=== PATIENT | female | born 1980 | race American Indian/Alaskan Native ===

== ENCOUNTER 2020-03-26 01:38 | Inpatient (IN) | payer MEDICARE ==
[2020-03-26] MEDS ORDERED: MORPHINE 4 MG/1 ML INJ IV ONE (02:12)
[2020-03-26] MEDS ORDERED: ONDANSETRON 4 MG/2 ML INJ IV ONE (02:13)
--- NOTE | 2020-03-26 02:25 | Emergency Department Report ---
ED Fall HPI - General Chief Complaint: Extremity Injury, Lower Stated Complaint: RIGHT BROKEN ANKLE Time Seen by Provider: 03/26/20 02:15 Source: patient, EMS Mode of arrival: Stretcher - History of Present Illness Initial Comments: Patient is 39 years old female with history of congestive heart failure. Patient brought to the emergency room via EMS from home for evaluation of right ankle pain with deformity after patient fell from stair. Patient stated that she missed a step. Patient denied any other injuries. Patient received 200 mcg of fentanyl by EMS for pain control. Patient stated that she is still hurting. Patient with obvious deformity to the right ankle. Patient received morphine in the ER for pain control. Neurovascular intact. Complaint: fall -: Sudden, This morning Fall From: down stairs (#) Place Fall Occurred: home Loss of Consciousness: none Prolonged Down Time?: no Symptoms Prior to Fall: none Location - Extremities: Right: Ankle, Foot Severity: severe Severity scale (0 -10): 10 Quality: sharp Context: tripped/slipped Associated Symptoms: denies - Related Data Home Medications Medication Instructions Recorded Confirmed Last Taken Spironolactone [Aldactone] 25 mg PO QDAY 03/26/20 03/26/20 Unknown carvediloL [Coreg] 25 mg PO BID 03/26/20 03/26/20 Unknown Previous Rx's Medication Instructions Recorded Last Taken Type Ondansetron [Zofran Odt] 4 mg PO Q8HR PRN #14 tab.rapdis 03/26/20 Unknown Rx oxyCODONE /ACETAMINOPHEN [Percocet 1 tab PO Q6HR PRN #14 tablet 03/26/20 Unknown Rx 5/325] Allergies Allergy/AdvReac Type Severity Reaction Status Date / Time Penicillins Allergy Unknown Verified 03/27/15 16:07 ED Review of Systems ROS: Stated complaint: RIGHT BROKEN ANKLE Other details as noted in HPI Comment: All other systems reviewed and negative Constitutional: denies: chills, fever Respiratory: denies: cough, shortness of breath, SOB with exertion Cardiovascular: denies: chest pain Gastrointestinal: denies: abdominal pain, nausea, vomiting, diarrhea, constipation, hematemesis Musculoskeletal: denies: back pain Neurological: denies: headache, weakness ED Past Medical Hx - Past Medical History Previous Medical History?: Yes Hx Congestive Heart Failure: Yes Hx Asthma: Yes Hx COPD: Yes - Social History Smoking Status: Never Smoker - Medications Home Medications: Home Medications Medication Instructions Recorded Confirmed Last Taken Type Ondansetron [Zofran Odt] 4 mg PO Q8HR PRN #14 tab.rapdis 03/26/20 Unknown Rx Spironolactone [Aldactone] 25 mg PO QDAY 03/26/20 03/26/20 Unknown History carvediloL [Coreg] 25 mg PO BID 03/26/20 03/26/20 Unknown History oxyCODONE /ACETAMINOPHEN [Percocet 1 tab PO Q6HR PRN #14 tablet 03/26/20 Unknown Rx 5/325] ED Physical Exam - General Limitations: No Limitations General appearance: alert, in no apparent distress - Head Head exam: Present: atraumatic, normocephalic, normal inspection - Eye Eye exam: Present: normal appearance - ENT ENT exam: Present: normal exam, normal orophraynx, mucous membranes moist - Neck Neck exam: Present: normal inspection, full ROM. Absent: tenderness, meningismus, lymphadenopathy - Respiratory Respiratory exam: Present: normal lung sounds bilaterally - Cardiovascular Cardiovascular Exam: Present: regular rate, normal rhythm, normal heart sounds - GI/Abdominal GI/Abdominal exam: Present: soft. Absent: distended, tenderness, guarding, rebound, rigid - Expanded Lower Extremity Exam Right Hip exam: Present: normal inspection, full ROM. Absent: tenderness Upper Leg exam: Present: normal inspection, full ROM. Absent: tenderness Knee exam: Present: normal inspection, full ROM. Absent: tenderness Lower Leg exam: Present: normal inspection Ankle exam: Present: tenderness, swelling, abrasion, deformity, dislocation Foot/Toe exam: Present: normal inspection, full ROM. Absent: tenderness, swelling, abrasion Neuro vascular tendon exam: Present: no vascular compromise - Back Exam Back exam: Present: normal inspection, full ROM. Absent: CVA tenderness (R), CVA tenderness (L) - Neurological Exam Neurological exam: Present: alert, oriented X3, CN II-XII intact - Psychiatric Psychiatric exam: Present: normal mood - Skin Skin exam: Present: warm, intact, normal color ED Course Vital Signs 03/26/20 03/26/20 03/26/20 02:06 02:18 02:34 Temperature 98.8 F Temperature [ Intra-Procedure ] Temperature [ Post-Procedure] Temperature [ Pre-Procedure] Pulse Rate 87 Pulse Rate [ Intra-Procedure ] Pulse Rate [ Post-Procedure] Pulse Rate [Pre -Procedure] Respiratory 20 20 20 Rate Respiratory Rate [Intra- Procedure] Respiratory Rate [Post- Procedure] Respiratory Rate [Pre- Procedure] Blood Pressure 160/88 Blood Pressure [Intra- Procedure] Blood Pressure [Post-Procedure ] Blood Pressure [Pre-Procedure] Blood Pressure [Right] O2 Sat by Pulse 98 99 Oximetry O2 Sat by Pulse Oximetry [ Intra-Procedure ] O2 Sat by Pulse Oximetry [Post -Procedure] O2 Sat by Pulse Oximetry [Pre- Procedure] 03/26/20 03/26/20 03/26/20 02:48 03:20 03:22 Temperature Temperature [ 98.9 F Intra-Procedure ] Temperature [ Post-Procedure] Temperature [ 98.9 F 98.9 F Pre-Procedure] Pulse Rate Pulse Rate [ 97 H Intra-Procedure ] Pulse Rate [ Post-Procedure] Pulse Rate [Pre 90 90 -Procedure] Respiratory 20 Rate Respiratory 18 Rate [Intra- Procedure] Respiratory Rate [Post- Procedure] Respiratory 20 20 Rate [Pre- Procedure] Blood Pressure Blood Pressure 139/85 [Intra- Procedure] Blood Pressure [Post-Procedure ] Blood Pressure 150/76 150/76 [Pre-Procedure] Blood Pressure [Right] O2 Sat by Pulse Oximetry O2 Sat by Pulse 99 Oximetry [ Intra-Procedure ] O2 Sat by Pulse Oximetry [Post -Procedure] O2 Sat by Pulse 99 99 Oximetry [Pre- Procedure] 03/26/20 03/26/20 03/26/20 03:24 03:29 03:30 Temperature Temperature [ 98.9 F Intra-Procedure ] Temperature [ 98.9 F Post-Procedure] Temperature [ 98.9 F Pre-Procedure] Pulse Rate 90 Pulse Rate [ 97 H Intra-Procedure ] Pulse Rate [ 92 H Post-Procedure] Pulse Rate [Pre 90 -Procedure] Respiratory 16 Rate Respiratory 18 Rate [Intra- Procedure] Respiratory 20 Rate [Post- Procedure] Respiratory 20 Rate [Pre- Procedure] Blood Pressure Blood Pressure 139/85 [Intra- Procedure] Blood Pressure 143/76 [Post-Procedure ] Blood Pressure 150/76 [Pre-Procedure] Blood Pressure [Right] O2 Sat by Pulse 98 Oximetry O2 Sat by Pulse 99 Oximetry [ Intra-Procedure ] O2 Sat by Pulse 100 Oximetry [Post -Procedure] O2 Sat by Pulse 99 Oximetry [Pre- Procedure] 03/26/20 03/26/20 03/26/20 03:45 05:00 05:21 Temperature 98.8 F Temperature [ Intra-Procedure ] Temperature [ Post-Procedure] Temperature [ Pre-Procedure] Pulse Rate 92 H Pulse Rate [ Intra-Procedure ] Pulse Rate [ Post-Procedure] Pulse Rate [Pre -Procedure] Respiratory 20 20 20 Rate Respiratory Rate [Intra- Procedure] Respiratory Rate [Post- Procedure] Respiratory Rate [Pre- Procedure] Blood Pressure Blood Pressure [Intra- Procedure] Blood Pressure [Post-Procedure ] Blood Pressure [Pre-Procedure] Blood Pressure 129/72 [Right] O2 Sat by Pulse 100 Oximetry O2 Sat by Pulse Oximetry [ Intra-Procedure ] O2 Sat by Pulse Oximetry [Post -Procedure] O2 Sat by Pulse Oximetry [Pre- Procedure] - Moderate Sedation Indications: fracture/dislocation redu ASA Class: II Mallampati Airway Score: 2 Preparation: quality assurance monitor applied, pulse oximeter, capnometry used, supplemental O2 applied, reversal agents at bedside, suction/airway equipment at bedside, IV secured Fentanyl: IV Fentanyl Dose: 50 Midazolam: IV Midazolam Dose: 5 IV Etomidate Dose (mgs): 5 Complications: none Patient Tolerated Procedure: well, no complications - Orthopedic Fracture Reduction Fracture #1 Consent Obtained: written consent Time Out Performed: Yes Side: right Fracture Reduction Location: tibia, fibula Technique: direct manipulation Post Reduction X-rays Demonstrate: anatomical reduction Post-Reduction Neuro Exam: intact Post-Reduction Vascular Exam: intact Splint Applied: Yes Patient Tolerated Procedure: well, no complications ED Medical Decision Making - Lab Data Result diagrams: 03/27/20 04:40 03/27/20 04:40 - Radiology Data Radiology results: report reviewed - Medical Decision Making Patient is 39 years old female with history of congestive heart failure. Patient brought to the emergency room via EMS from home for evaluation of right ankle pain with deformity after patient fell from stair. Patient stated that she missed a step. Patient denied any other injuries. Patient received 200 mcg of fentanyl by EMS for pain control. Patient stated that. Still hurting. Patient with obvious deformity to the right ankle. Patient received morphine in the ER for pain control. Neurovascular intact. Under moderate sedation. Right ankle joint reduced. Posterior splint applied. post reduction film showed some dislocation. I discussed the patient with Dr. Soni and I sent images to him post preand post reduction film. He advised that patient can be discharged home and to follow-up with him in his office for further management. Patient given crutches. Unfortunately patient continued to have significant pain after multiple doses of pain medication. I re-discussed patient with Dr. Soni who advised to admit the patient to the hospitalist and he will be consulted on her. I discussed the patient with Dr. Nathan, he agreed to admit the patient to medical service. Critical care attestation.: If time is entered above; I have spent that time in minutes in the direct care of this critically ill patient, excluding procedure time. ED Disposition Clinical Impression: Ankle dislocation, Closed right fibular fracture Disposition: OP ADMIT IP TO THIS HOSP Is pt being admited?: Yes Condition: Stable
[2020-03-26] MEDS ORDERED: fentaNYL 100 MCG/2 ML INJ IV ONE (03:02)
[2020-03-26] MEDS ORDERED: MIDAZOLAM 5 MG/5 ML INJ MDV IV ONE (03:02)
--- NOTE | 2020-03-26 03:09 | XRay Report ---
RIGHT ANKLE 2 VIEWS INDICATION / CLINICAL INFORMATION: Fell down stairs. COMPARISON: None available. FINDINGS: There is a fracture dislocation of the right ankle with the talus dislocated one shaft laterally with respect to the tibial plafond. There are fractures involving the medial, posterior malleolus and sup er syndesmotic fracture of distal fibula. Postreduction x-ray recommended. Signer Name: Arian Puentes MD Signed: 03/26/2020 3:05 AM Workstation Name: [email or web address]
--- NOTE | 2020-03-26 03:10 | XRay Report ---
RIGHT FOOT 2 VIEWS INDICATION / CLINICAL INFORMATION: Fell down stairs. COMPARISON: None available. FINDINGS: No fracture or dislocation is seen within the right foot. Please see separate right ankle report for description of the ankle fracture dislocation Signer Name: Arian Puentes MD Signed: 03/26/2020 3:06 AM Workstation Name: [id number]
[2020-03-26] MEDS ORDERED: SODIUM CHLORIDE 0.9% 1000 ML 1,000 ML ONE (03:18)
[2020-03-26] MEDS ORDERED: ETOMIDATE 20 MG/10 ML INJ IV ONE ×2 (03:21→03:25)
--- NOTE | 2020-03-26 03:57 | XRay Report ---
RIGHT ANKLE 1 VIEW INDICATION / CLINICAL INFORMATION: Post Reduction. COMPARISON: Right ankle x-ray 2:42 AM same day FINDINGS: Right ankle fracture is again noted. Alignment cannot be assessed without 2 views. Signer Name: Arian Puentes MD Signed: 03/26/2020 3:52 AM Workstation Name: [id number]
--- NOTE | 2020-03-26 04:28 | XRay Report ---
RIGHT ANKLE 2 VIEWS INDICATION / CLINICAL INFORMATION: Post Reduction. COMPARISON: Right ankle x-ray 3:16 AM same day FINDINGS: Moderately displaced trimalleolar fracture is noted. The talus is subluxed 1.9 cm laterally with medi al malar fracture fragment trapped in the medial ankle mortise. Signer Name: Arian Puentes MD Signed: 03/26/2020 4:24 AM Workstation Name: [id number]
[2020-03-26] MEDS ORDERED: SODIUM CHLORIDE 0.9% 1000 ML 1,000 ML IV ONE (04:33)
[2020-03-26] MEDS ORDERED: KETOROLAC 30 MG/1 ML INJ ONE (05:19)
[2020-03-26] MEDS ORDERED: KETOROLAC 30 MG/1 ML INJ IV ONE (05:20)
[2020-03-26 06:22] LABS: Basophils % (Auto) 0.4 % (0.0-1.8); Eosinophils % (Auto) 0.4 % (0.0-4.3); Hematocrit 25.7 % (30.3-42.9); Hemoglobin 8.4 gm/dl (10.1-14.3); Lymphocytes # (Auto) 1.7 K/mm3 (1.2-5.4); Lymphocytes % (Auto) 15.5 % (13.4-35.0); Mean Corpuscular HGB Conc 33 % (30-34); Mean Corpuscular Volume 75 fl (79-97); Monocytes # (Auto) 0.5 K/mm3 (0.0-0.8); Platelet Count 262 K/mm3 (140-440); Red Blood Count 3.42 M/mm3 (3.65-5.03)
[2020-03-26 06:33] LABS: INR 0.95 (0.87-1.13)
[2020-03-26 06:34] LABS: Partial Thromboplastin Time 24.6 Sec. (24.2-36.6)
[2020-03-26 06:36] LABS: BUN/Creatinine Ratio 14; Blood Urea Nitrogen 11 mg/dL (7-17); Calcium 8.4 mg/dL (8.4-10.2); Hemolysis Index 0
--- NOTE | 2020-03-26 06:41 | XRay Report ---
CHEST 1 VIEW 03/26/2020 5:27 AM INDICATION / CLINICAL INFORMATION: Medical clearance for surgery. COMPARISON: None available. FINDINGS: SUPPORT DEVICES: None. HEART / MEDIASTINUM: No significant abnormality. LUNGS / PLEURA: No significant pulmonary or pleural abnormality. No pneumothorax. ADDITIONAL FINDINGS: No significant additional findings. IMPRESSION: 1. No acute findings. Signer Name: Arian Puentes MD Signed: 03/26/2020 6:36 AM Workstation Name: [id number]
[2020-03-26] MEDS ORDERED: ONDANSETRON 4 MG/2 ML INJ ONE (09:18)
[2020-03-26] MEDS ORDERED: HYDROmorphone 1 MG/1 ML INJ ONE (09:19)
[2020-03-26] MEDS: HYDROmorphone 1 MG/1 ML INJ IV PRN ×3 (09:20→21:50)
[2020-03-26] MEDS: ONDANSETRON 4 MG/2 ML INJ IV PRN (09:20)
[2020-03-26] MEDS ORDERED: LACTATED RINGERS 1,000 ML ONE (11:16)
[2020-03-26] MEDS ORDERED: HYDROmorphone 1 MG/1 ML INJ IV PRN ×2 (11:17→17:26)
[2020-03-26] MEDS ORDERED: ONDANSETRON 4 MG/2 ML INJ IV PRN ×2 (11:17→17:26)
[2020-03-26] MEDS ORDERED: fentaNYL 100 MCG/2 ML INJ IV NR (11:17)
[2020-03-26] MEDS ORDERED: LIDOCAINE MPF (2%) 20 MG/1 ML VIAL 5 ML ONE (11:20)
[2020-03-26] MEDS ORDERED: SUCCINYLCHOLINE CHLORIDE 200 MG/10 ML INJ MDV ONE (11:20)
[2020-03-26] MEDS ORDERED: NEOSTIGMINE 10MG/10 ML INJ MDV ONE (11:20)
[2020-03-26] MEDS ORDERED: ROCURONIUM 50 MG/5 ML INJ IV ONE (11:20)
[2020-03-26] MEDS ORDERED: PHENYLEPHRINE/NS 1,000 MCG/10 ML SYRINGE (OR USE) IV ONE (11:20)
[2020-03-26] MEDS ORDERED: GLYCOPYRROLATE 0.4 MG/2 ML INJ ONE (11:20)
[2020-03-26] MEDS ORDERED: propofoL 200 MG/20 ML VIAL IV ONE (11:20)
--- NOTE | 2020-03-26 11:21 | Anesthesia Day of Surgery ---
Anesthesia Day of Surgery - Day of Surgery Patient Examined: Yes Patient H&P Reviewed: Yes Patient is NPO: Yes
--- NOTE | 2020-03-26 11:21 | Anesthesia Consultation ---
Anesthesia Consult and Med Hx Date of service: 03/26/20 - Airway Anesthetic Teeth Evaluation: Dentures (upper) ROM Head & Neck: Adequate Mental/Hyoid Distance: Adequate Mallampati Class: Class III Intubation Access Assessment: Possibly Difficult - Pulmonary Exam CTA: Yes - Cardiac Exam Cardiac Exam: RRR - Pre-Operative Health Status ASA Pre-Surgery Classification: ASA3 Proposed Anesthetic Plan: General Nerve Block: Adductor canal + popliteal - Pulmonary Hx Asthma: Yes (no inhaler use in many months) Hx Respiratory Symptoms: No - Cardiovascular System Hx Hypertension: Yes Hx Heart Attack/AMI: No Hx Percutaneous Transluminal Coronary Angioplasty (PTCA): No Hx Cardia Arrhythmia: No Hx Pacemaker: No Hx Internal Defibrillator: No - Central Nervous System CVA: No - Gastrointestinal Hx Gastroesophageal Reflux Disease: No - Endocrine Hx Renal Disease: No Hx Liver Disease: No Hx Insulin Dependent Diabetes: No Hx Non-Insulin Dependent Diabetes: No Hx Thyroid Disease: No - Hematic Hx Anemia: Yes - Other Systems Hx Obesity: Yes (BMI) - Additional Comments Anesthesia Medical History Comments: No hx anesthetic complications. Hx CHF w/ stable 2 pillow orthopnea. Reports recent neg outpatient stress test. >4mets exercise capacity.
[2020-03-26] MEDS ORDERED: BUPIVACAINE-EPINEPHRINE/PF 0.25%-1:200,000 (30 ML) VIAL INFILTRATI ONE (11:23)
[2020-03-26] MEDS ORDERED: dexAMETHasone 4 MG/ML VIAL ONE (11:23)
[2020-03-26] MEDS ORDERED: LACTATED RINGERS 1,000 ML IV SCH (12:00)
[2020-03-26] MEDS ORDERED: MIDAZOLAM 2 MG/2 ML INJ IV NR (12:00)
[2020-03-26] MEDS ORDERED: GABAPENTIN 300 MG CAP PO NR (12:00)
[2020-03-26] MEDS ORDERED: VANCOMYCIN 1,500 MG in SODIUM CHLORIDE 0.9% 500 ML 500 ML IV NR (12:30)
[2020-03-26] MEDS ORDERED: VANCOMYCIN/NS 1 GM/250 ML 1 GM/250 ML BAG IV NR (13:00)
[2020-03-26] MEDS ORDERED: SODIUM CHLORIDE 0.9% IRR 1,000 ML BOTTLE IR ONE (13:28)
[2020-03-26] MEDS ORDERED: MORPHINE 4 MG/1 ML INJ IV PRN (14:53)
--- NOTE | 2020-03-26 14:58 | Consultation ---
History of Present Illness - [facility] Consult date: 03/26/20 Consult reason: fracture History of present illness: 39-year-old female who comes in complaining of right ankle pain and deformity after falling down stairs earlier today patient complains of inability to bear weight afterwards she was brought to the emergency department where x-rays taken revealed a displaced trimalleolar ankle fracture patient underwent a closed reduction in the emergency room she was admitted to the hospital and will be taken to the OR for an open reduction internal fixation Medications and Allergies Allergies Allergy/AdvReac Type Severity Reaction Status Date / Time Penicillins Allergy Unknown Verified 03/27/15 16:07 Home Medications Medication Instructions Recorded Confirmed Last Taken Type Ondansetron [Zofran Odt] 4 mg PO Q8HR PRN #14 tab.rapdis 03/26/20 Unknown Rx Spironolactone [Aldactone] 25 mg PO QDAY 03/26/20 03/26/20 Unknown History carvediloL [Coreg] 25 mg PO BID 03/26/20 03/26/20 Unknown History oxyCODONE /ACETAMINOPHEN [Percocet 1 tab PO Q6HR PRN #14 tablet 03/26/20 Unknown Rx 5/325] Active Meds: Active Medications Fentanyl (Sublimaze) 100 mcg IV ONCE NR Stop: 03/26/20 23:00 Last Admin: 03/26/20 11:44 Dose: 100 mcg Documented by: Gabapentin (Gabapentin) 300 mg PO PREOP NR Stop: 03/26/20 23:00 Last Admin: 03/26/20 11:38 Dose: 300 mg Documented by: Hydromorphone HCl (Dilaudid) 1 mg IV Q3H PRN PRN Reason: Pain, Moderate (4-6) Last Admin: 03/26/20 09:20 Dose: 1 mg Documented by: Hydromorphone HCl (Dilaudid) 0.5 mg IV Q10MIN PRN PRN Reason: Pain , Severe (7-10) Stop: 03/26/20 23:00 Lactated Ringer's (Lactated Ringers) 1,000 mls @ 42 mls/hr IV DIRECT KARYN Last Admin: 03/26/20 11:35 Dose: 42 mls/hr Documented by: Vancomycin HCl 1,500 mg/ (Sodium Chloride) 530 mls @ 333.333 mls/hr IV PREOP NR Stop: 03/26/20 18:00 Midazolam HCl (Versed) 2 mg IV PREOP NR Stop: 03/26/20 23:59 Last Admin: 03/26/20 11:43 Dose: 2 mg Documented by: Ondansetron HCl (Zofran) 4 mg IV Q3H PRN PRN Reason: Nausea Last Admin: 03/26/20 09:20 Dose: 4 mg Documented by: Ondansetron HCl (Zofran) 4 mg IV ONCE PRN PRN Reason: Nausea And Vomiting Stop: 03/26/20 23:00 Physical Examination - Physical exam Narrative exam: On physical examination significant musculoskeletal findings relates to the right lower extremity here patient is noted to have obvious deformity of the right ankle there was a mild abrasion along the medial border no bone exposed distal neurovascular status is intact she has good capillary refill Eyes: PERRL ENT: Positive: clear oral mucosa Respiratory effort: normal Respiratory: bilateral: CTA Rhythm: regular Heart Sounds: Positive: S1 & S2 General gastrointestinal: Positive: soft, non-tender, non-distended, normal bowel sounds Integumentary: clear, warm, dry Neurologic: Positive: CNII-XII intact, moves all extremities, gait normal. Negative: focal deficits Assessment and Plan Displaced right ankle fracture Recommendations patient will require open reduction internal fixation
--- NOTE | 2020-03-26 15:00 | Procedure Note ---
Date of procedure: 03/26/20 Pre-op diagnosis: Displaced right trimalleolar ankle fracture Post-op diagnosis: same Procedure: Open reduction internal fixation right ankle Procedure Patient was brought to the OR placed on the OR table in supine position following induction and intubation by anesthesia the patient's right lower extremity was prepped and draped in the usual sterile manner. A timeout procedure was done to identify the patient and the correct operative site. The right leg was then exsanguinated followed by inflation of the pneumatic tourniquet to 300 mmHg. A lateral incision was made along the distal leg this is taken down sharply through skin subcu the fracture site was identified patient was noted to have moderate comminution at the fracture next using bone clamps and retractors the fracture fragment was then manipulated and reduced this was then held in place using a 8 hole one third semitubular plate next a straight medial incision was made over the distal tibia this was then taken down sharply through skin subcu the fracture all on the medial malleolus was then identified again using clamps the fracture fragments were manipulated and were held in position using a K wire following this to 4.0 50 mm length cancellus screws were inserted under fluoroscopic control AP and lateral views were obtained showing good reduction of the fracture as well as placement of the hardware next the wound was were closed in a standard routine fashion postop dressings were applied as well as a well-padded posterior mold patient tolerated procedure there were no complications she was sent to postanesthesia recovery in a stable condition Anesthesia: [place] Surgeon: ANSELMO HENDRIX Estimated blood loss: minimal Pathology: none Condition: stable Disposition: PACU
--- NOTE | 2020-03-26 15:36 | Post Anesthesia Evaluation ---
- Post Anesthesia Evaluation Patient Participated: Yes Airway Patent: Yes Stable Respiratory Function: Yes Nausea/Vomiting: No Temp > 96.8F: Yes Pain Manageable: Yes Adequeate Hydration: Yes Anesthesia Complications: No
--- NOTE | 2020-03-26 15:58 | XRay Report ---
INTRAOPERATIVE FLUOROSCOPY: RIGHT ANKLE INDICATION: Right ankle fracture. TECHNIQUE: Intraoperative spot images were obtained during the procedure. FINDINGS: There is anatomic alignment of the distal fibular and medial malleolus fractures following placement of a lateral plate and multiple screws along the fibula and partially threaded screws along the media l malleolus. There is similar alignment of the posterior malleolus fracture. Alignment of the ankle m ortise has significantly improved. Please see the operative report for further details. Fluoroscopy Time: 31 seconds. Fluoroscopy Images: 2. Signer Name: Theodore Woo MD Signed: 03/26/2020 3:53 PM Workstation Name: [id number]
[2020-03-26] MEDS ORDERED: ACETAMINOPHEN 325 MG TAB PO PRN (17:26)
--- NOTE | 2020-03-26 17:26 | History and Physical Report ---
History of Present Illness Date of examination: 03/26/20 Date of admission: 03/26/20 05:58 Chief complaint: Right ankle pain and deformity after falling this morning History of present illness: 39-year-old female with history of hypertension and CHF brought in by EMS after a fall involving twisting of the ankle and swelling and deformity of the right ankle. Patient fell down from stairs. Patient missed a step. Patient was given fentanyl 200 mcg and route. Patient has obvious deformity of the right ankle and unable to walk. Pain is about 10 on a scale of 1-10. Movement is a precipitating factor. Rest is a relieving factor. Past Medical History Previous Medical History?: Yes Congestive Heart Failure: Yes Asthma: Yes COPD: Yes Surgical history none Social History Smoking Status: Never Smoker Family history HTN Medications Home Medications: Home Medications Medication Instructions Recorded Confirmed Last Taken Type Ondansetron [Zofran Odt] 4 mg PO Q8HR PRN #14 tab.rapdis 03/26/20 Unknown Rx Spironolactone [Aldactone] 25 mg PO QDAY 03/26/20 03/26/20 Unknown History carvediloL [Coreg] 25 mg PO BID 03/26/20 03/26/20 Unknown History oxyCODONE /ACETAMINOPHEN [Percocet 1 tab PO Q6HR PRN #14 tablet 03/26/20 Unknown Rx 5/325] Review of Systems ROS: Stated complaint: RIGHT BROKEN ANKLE Other details as noted in HPI Comment: All other systems reviewed and negative Constitutional: denies: chills, fever Respiratory: denies: cough, shortness of breath, SOB with exertion Cardiovascular: denies: chest pain Gastrointestinal: denies: abdominal pain, nausea, vomiting, diarrhea, constipation, hematemesis Musculoskeletal: denies: back pain Neurological: denies: headache, weakness Medications and Allergies Allergies Allergy/AdvReac Type Severity Reaction Status Date / Time Penicillins Allergy Unknown Verified 03/27/15 16:07 Home Medications Medication Instructions Recorded Confirmed Last Taken Type Ondansetron [Zofran Odt] 4 mg PO Q8HR PRN #14 tab.rapdis 03/26/20 Unknown Rx Spironolactone [Aldactone] 25 mg PO QDAY 03/26/20 03/26/20 Unknown History carvediloL [Coreg] 25 mg PO BID 03/26/20 03/26/20 Unknown History oxyCODONE /ACETAMINOPHEN [Percocet 1 tab PO Q6HR PRN #14 tablet 03/26/20 Unknown Rx 5/325] Active Meds: Active Medications Acetaminophen/Hydrocodone Bitart (Ravia 5/325) 1 each PO Q6H PRN PRN Reason: Pain, Moderate (4-6) Fentanyl (Sublimaze) 100 mcg IV ONCE NR Stop: 03/26/20 23:00 Last Admin: 03/26/20 11:44 Dose: 100 mcg Documented by: Gabapentin (Gabapentin) 300 mg PO PREOP NR Stop: 03/26/20 23:00 Last Admin: 03/26/20 11:38 Dose: 300 mg Documented by: Hydromorphone HCl (Dilaudid) 1 mg IV Q3H PRN PRN Reason: Pain, Moderate (4-6) Last Admin: 03/26/20 09:20 Dose: 1 mg Documented by: Hydromorphone HCl (Dilaudid) 0.5 mg IV Q10MIN PRN PRN Reason: Pain , Severe (7-10) Stop: 03/26/20 23:00 Lactated Ringer's (Lactated Ringers) 1,000 mls @ 42 mls/hr IV DIRECT KARYN Last Admin: 03/26/20 11:35 Dose: 42 mls/hr Documented by: Vancomycin HCl 1,500 mg/ (Sodium Chloride) 530 mls @ 333.333 mls/hr IV PREOP NR Stop: 03/26/20 18:00 Midazolam HCl (Versed) 2 mg IV PREOP NR Stop: 03/26/20 23:59 Last Admin: 03/26/20 11:43 Dose: 2 mg Documented by: Morphine Sulfate (Morphine) 4 mg IV Q4H PRN PRN Reason: Pain , Severe (7-10) Ondansetron HCl (Zofran) 4 mg IV Q3H PRN PRN Reason: Nausea Last Admin: 03/26/20 09:20 Dose: 4 mg Documented by: Ondansetron HCl (Zofran) 4 mg IV ONCE PRN PRN Reason: Nausea And Vomiting Stop: 03/26/20 23:00 Sodium Chloride (Sodium Chloride Flush Syringe 10 Ml) 10 ml IV PRN NR Stop: 03/29/20 14:59 Exam - Constitutional Vitals: Temp Pulse Resp BP Pulse Ox 98.1 F 87 18 136/85 100 03/26/20 15:52 03/26/20 15:52 03/26/20 15:52 03/26/20 15:52 03/26/20 15:52 General appearance: Present: mild distress, well-nourished - EENT Eyes: Present: PERRL ENT: hearing intact, clear oral mucosa - Neck Neck: Present: supple, normal ROM - Respiratory Respiratory effort: normal Respiratory: bilateral: CTA - Cardiovascular Heart rate: 78 Rhythm: regular Heart Sounds: Present: S1 & S2. Absent: rub, click - Extremities Extremities: no ischemia, pulses intact, pulses symmetrical, No edema, abnormal (Right ankle deformed) Extremity abnormal: deformity (Right ankle) Peripheral Pulses: within normal limits - Abdominal General gastrointestinal: Present: soft, non-tender, non-distended, normal bowel sounds Female genitourinary: Present: normal - Rectal Rectal Exam: deferred - Integumentary Integumentary: Present: clear, warm, dry - Musculoskeletal Musculoskeletal: gait normal, strength equal bilaterally - Psychiatric Psychiatric: appropriate mood/affect, intact judgment & insight - Neurologic Neurologic: CNII-XII intact, moves all extremities - Allied Health Allied health notes reviewed: nursing Results - Labs CBC & Chem 7: 03/27/20 04:40 03/27/20 04:40 Labs: Laboratory Last Values WBC 10.9 K/mm3 (4.5-11.0) 03/26/20 06:03 RBC 3.42 M/mm3 (3.65-5.03) L 03/26/20 06:03 Hgb 8.4 gm/dl (10.1-14.3) L 03/26/20 06:03 Hct 25.7 % (30.3-42.9) L 03/26/20 06:03 MCV 75 fl (79-97) L 03/26/20 06:03 MCH 25 pg (28-32) L 03/26/20 06:03 MCHC 33 % (30-34) 03/26/20 06:03 RDW 18.0 % (13.2-15.2) H 03/26/20 06:03 Plt Count 262 K/mm3 (140-440) 03/26/20 06:03 Lymph % (Auto) 15.5 % (13.4-35.0) 03/26/20 06:03 Baker % (Auto) 5.0 % (0.0-7.3) 03/26/20 06:03 Eos % (Auto) 0.4 % (0.0-4.3) 03/26/20 06:03 Baso % (Auto) 0.4 % (0.0-1.8) 03/26/20 06:03 Lymph # 1.7 K/mm3 (1.2-5.4) 03/26/20 06:03 Baker # 0.5 K/mm3 (0.0-0.8) 03/26/20 06:03 Eos # 0.0 K/mm3 (0.0-0.4) 03/26/20 06:03 Baso # 0.0 K/mm3 (0.0-0.1) 03/26/20 06:03 Seg Neutrophils % 78.7 % (40.0-70.0) H 03/26/20 06:03 Seg Neutrophils # 8.6 K/mm3 (1.8-7.7) H 03/26/20 06:03 PT 12.5 Sec. (12.2-14.9) 03/26/20 06:03 INR 0.95 (0.87-1.13) 03/26/20 06:03 APTT 24.6 Sec. (24.2-36.6) 03/26/20 06:03 Sodium 138 mmol/L (137-145) 03/26/20 06:03 Potassium 4.2 mmol/L (3.6-5.0) 03/26/20 06:03 Chloride 103.4 mmol/L (98-107) 03/26/20 06:03 Carbon Dioxide 23 mmol/L (22-30) 03/26/20 06:03 Anion Gap 16 mmol/L 03/26/20 06:03 BUN 11 mg/dL (7-17) 03/26/20 06:03 Creatinine 0.8 mg/dL (0.7-1.2) 03/26/20 06:03 Estimated GFR > 60 ml/min 03/26/20 06:03 BUN/Creatinine Ratio 14 % 03/26/20 06:03 Glucose 125 mg/dL (65-100) H 03/26/20 06:03 Calcium 8.4 mg/dL (8.4-10.2) 03/26/20 06:03 Blood Type O POSITIVE 03/26/20 06:06 Antibody Screen Negative 03/26/20 06:06 - Imaging and Cardiology Imaging and Cardiology: Right ankle x-ray FINDINGS: Moderately displaced trimalleolar fracture is noted. The talus is subluxed 1.9 cm laterally with medial malar fracture fragment trapped in the medial ankle mortise. Winters/IV: Voiding Method Bedpan IV Catheter Type [Left INT / Saline Lock Antecubital] Assessment and Plan Advance Directives: Yes (Full code) VTE prophylaxis?: Chemical Plan of care discussed with patient/family: Yes - Patient Problems (1) Trimalleolar fracture of right ankle Current Visit: Yes Status: Acute Qualifiers: Encounter type: initial encounter Fracture type: closed Qualified Code(s): S82.851A - Displaced trimalleolar fracture of right lower leg, initial encounter for closed fracture Plan to address problem: Patient to be taken to the operating room for surgery and internal fixation Complex fracture Dr. Soni consulted (2) Hypertension Current Visit: Yes Status: Chronic Qualifiers: Hypertension type: essential hypertension Qualified Code(s): I10 - Essential (primary) hypertension Plan to address problem: Continue antihypertensives (3) CHF (congestive heart failure) Current Visit: Yes Status: Chronic Qualifiers: Heart failure type: combined systolic and diastolic Plan to address problem: Mild Patient medically cleared for surgery (4) Anemia Current Visit: Yes Status: Chronic Qualifiers: Anemia type: iron deficiency Plan to address problem: Anemia work-up (5) DVT prophylaxis Current Visit: Yes Status: Acute Plan to address problem: SCDs for now and GI prophylaxis
[2020-03-26] MEDS ORDERED: SODIUM CHLORIDE 0.9% 1000 ML 1,000 ML IV SCH (17:30)
[2020-03-26] MEDS: FAMOTIDINE 20 MG/2 ML INJ IV SCH (21:51)
[2020-03-27] MEDS: ONDANSETRON 4 MG/2 ML INJ IV PRN ×2 (05:05→05:13)
[2020-03-27] MEDS: HYDROmorphone 1 MG/1 ML INJ IV PRN ×6 (05:05→22:43)
[2020-03-27 05:20] LABS: Basophils % (Auto) 0.1 % (0.0-1.8); Hematocrit 26.5 % (30.3-42.9); Hemoglobin 8.1 gm/dl (10.1-14.3); Lymphocytes # (Auto) 0.8 K/mm3 (1.2-5.4); Lymphocytes % (Auto) 8.2 % (13.4-35.0); Mean Corpuscular HGB Conc 31 % (30-34); Mean Corpuscular Volume 76 fl (79-97); Monocytes # (Auto) 0.6 K/mm3 (0.0-0.8); Monocytes % (Auto) 6.5 % (0.0-7.3); Platelet Count 278 K/mm3 (140-440); Red Cell Distribution Width 17.8 % (13.2-15.2)
[2020-03-27 05:23] LABS: Alanine Aminotransferase 12 units/L (7-56); Albumin 3.4 g/dL (3.9-5); BUN/Creatinine Ratio 11; Blood Urea Nitrogen 9 mg/dL (7-17); Calcium 8.5 mg/dL (8.4-10.2); Hemolysis Index 3
[2020-03-27] MEDS: FAMOTIDINE 20 MG/2 ML INJ IV SCH ×2 (08:26→11:14)
[2020-03-27] MEDS: oxyCODONE /ACETAMINOPHEN 5-325MG TAB PO PRN (13:01)
--- NOTE | 2020-03-27 16:27 | Progress Note ---
Assessment and Plan Status post ORIF right ankle Doing well Continue physical therapy and observation Subjective Date of service: 03/27/20 Interval history: Complaining of right ankle pain otherwise okay Objective Vital signs: Vital Signs - 12hr 03/27/20 03/27/20 03/27/20 05:52 08:11 12:47 Temperature 98.1 F 98.0 F 98.2 F Pulse Rate 75 79 70 Respiratory 20 20 19 Rate Blood Pressure 129/70 136/74 [Left] Blood Pressure 135/70 [Right] O2 Sat by Pulse 96 95 Oximetry Incision: healing, clean and dry Weight bearing status: none - Labs CBC & BMP: 03/27/20 04:40 03/27/20 04:40 Labs: Abnormal lab results 03/27/20 03/27/20 Range/Units 04:40 04:40 RBC 3.50 L (3.65-5.03) M/mm3 Hgb 8.1 L (10.1-14.3) gm/dl Hct 26.5 L (30.3-42.9) % MCV 76 L (79-97) fl MCH 23 L (28-32) pg RDW 17.8 H (13.2-15.2) % Lymph % (Auto) 8.2 L (13.4-35.0) % Lymph # 0.8 L (1.2-5.4) K/mm3 Seg Neutrophils % 85.2 H (40.0-70.0) % Seg Neutrophils # 8.3 H (1.8-7.7) K/mm3 Glucose 124 H (65-100) mg/dL Albumin 3.4 L (3.9-5) g/dL
--- NOTE | 2020-03-27 17:11 | Progress Note ---
Assessment and Plan - Patient Problems (1) Trimalleolar fracture of right ankle Current Visit: Yes Status: Acute Qualifiers: Encounter type: initial encounter Fracture type: closed Qualified Code(s): S82.851A - Displaced trimalleolar fracture of right lower leg, initial encounter for closed fracture Plan to address problem: Patient had right ankle surgery with trimalleolar fracture fixation Postop patient doing well Patient using walker Needs pain management (2) Hypertension Current Visit: Yes Status: Chronic Qualifiers: Hypertension type: essential hypertension Qualified Code(s): I10 - Essential (primary) hypertension Plan to address problem: Continue antihypertensives (3) CHF (congestive heart failure) Current Visit: Yes Status: Chronic Qualifiers: Heart failure type: combined systolic and diastolic Plan to address problem: Mild Patient medically cleared for surgery (4) Anemia Current Visit: Yes Status: Chronic Qualifiers: Anemia type: iron deficiency Plan to address problem: Anemia work-up (5) DVT prophylaxis Current Visit: Yes Status: Acute Plan to address problem: SCDs for now and GI prophylaxis Subjective Date of service: 03/27/20 Principal diagnosis: Right ankle trimalleolar fracture Interval history: Patient is s/p surgery and doing well patient is using a walker Objective - Constitutional Vitals: Vital Signs - 12hr 03/27/20 03/27/20 03/27/20 05:52 08:11 12:47 Temperature 98.1 F 98.0 F 98.2 F Pulse Rate 75 79 70 Respiratory 20 20 19 Rate Blood Pressure 129/70 136/74 [Left] Blood Pressure 135/70 [Right] O2 Sat by Pulse 96 95 Oximetry General appearance: Present: no acute distress, well-nourished - EENT Eyes: PERRL, EOM intact ENT: hearing intact, clear oral mucosa Ears: bilateral: normal - Neck Neck: supple, normal ROM - Respiratory Respiratory effort: normal Respiratory: bilateral: CTA - Breasts Breasts: normal - Cardiovascular Heart rate: 80 Rhythm: regular Heart Sounds: Present: S1 & S2. Absent: gallop, rub Extremities: pulses intact, No edema, normal color, Full ROM - Gastrointestinal General gastrointestinal: Present: soft, non-tender, non-distended, normal bowel sounds - Genitourinary Female genitourinary: normal - Integumentary Integumentary: clear, warm, dry - Musculoskeletal Musculoskeletal: 1, strength equal bilaterally - Neurologic Neurologic: moves all extremities - Psychiatric Psychiatric: memory intact, appropriate mood/affect, intact judgment & insight - Allied health notes Allied health notes reviewed: nursing, case management - Labs CBC & Chem 7: 03/27/20 04:40 03/27/20 04:40 Labs: Abnormal lab results 03/27/20 03/27/20 Range/Units 04:40 04:40 RBC 3.50 L (3.65-5.03) M/mm3 Hgb 8.1 L (10.1-14.3) gm/dl Hct 26.5 L (30.3-42.9) % MCV 76 L (79-97) fl MCH 23 L (28-32) pg RDW 17.8 H (13.2-15.2) % Lymph % (Auto) 8.2 L (13.4-35.0) % Lymph # 0.8 L (1.2-5.4) K/mm3 Seg Neutrophils % 85.2 H (40.0-70.0) % Seg Neutrophils # 8.3 H (1.8-7.7) K/mm3 Glucose 124 H (65-100) mg/dL Albumin 3.4 L (3.9-5) g/dL
[2020-03-27] MEDS: HYDROcodone/ACETAMINOPHEN 5-325 MG TAB PO PRN (21:36)
[2020-03-27] MEDS: FAMOTIDINE 20 MG TAB PO SCH (21:36)
[2020-03-28] MEDS: HYDROmorphone 1 MG/1 ML INJ IV PRN ×3 (02:59→11:48)
[2020-03-28] MEDS: HYDROcodone/ACETAMINOPHEN 5-325 MG TAB PO PRN ×3 (04:32→15:40)
[2020-03-28] MEDS ORDERED: HYDROmorphone 1 MG/1 ML INJ IV ONE (05:20)
[2020-03-28] MEDS: FAMOTIDINE 20 MG TAB PO SCH ×2 (08:29→10:05)
--- NOTE | 2020-03-28 14:49 | Progress Note ---
Assessment and Plan - Patient Problems (1) Trimalleolar fracture of right ankle Current Visit: Yes Status: Acute Qualifiers: Encounter type: initial encounter Fracture type: closed Qualified Code(s): S82.851A - Displaced trimalleolar fracture of right lower leg, initial encounter for closed fracture (2) Hypertension Current Visit: Yes Status: Chronic Qualifiers: Hypertension type: essential hypertension Qualified Code(s): I10 - Essential (primary) hypertension (3) CHF (congestive heart failure) Current Visit: Yes Status: Chronic Qualifiers: Heart failure type: combined systolic and diastolic (4) Anemia Current Visit: Yes Status: Chronic Qualifiers: Anemia type: iron deficiency (5) DVT prophylaxis Current Visit: Yes Status: Acute Objective - Constitutional Vitals: Vital Signs - 12hr 03/28/20 03/28/20 03/28/20 04:43 05:00 07:25 Temperature 98.2 F 98.4 F Pulse Rate 90 83 Respiratory 17 17 Rate Blood Pressure 161/95 [Left] Blood Pressure 160/74 156/87 [Right] O2 Sat by Pulse 95 100 96 Oximetry 03/28/20 03/28/20 09:01 11:00 Temperature 98.2 F Pulse Rate 96 H Respiratory 18 Rate Blood Pressure 136/97 [Left] Blood Pressure [Right] O2 Sat by Pulse 96 100 Oximetry - Labs CBC & Chem 7: 03/27/20 04:40 03/27/20 04:40
[2020-03-28 15:22] VITALS: BP 130/84
[2020-03-28] MEDS ORDERED: KETOROLAC 30 MG/1 ML INJ IV SCH (18:00)
--- NOTE | 2020-03-28 18:57 | Discharge Summary ---
Providers - Providers Date of Admission: 03/26/20 05:58 Date of discharge: 03/28/20 Attending physician: JANESSA VIGIL 03/26/20 05:58 Consult to Physician [CONS] Stat Comment: Consulting Provider: ANSELMO SONI Physician Instructions: Reason For Exam: Right ankle fracture and dislocation 03/26/20 14:55 Physical Therapy Evaluation and Treat [CONS] Routine Comment: Reason For Exam: Postop evaluation Weight bearing status?: Nonwt bearing Assistive devices?: Yes If so list: Walker Primary care physician: DAVIS THOMPSON MD Hospitalization Condition: Stable Hospital course: Status post right ankle fracture after a fall Patient was taken to the operating room and had right ankle internal fixation. See operative note of Dr. Soni (1) Trimalleolar fracture of right ankle Current Visit: Yes Status: Acute Qualifiers: Encounter type: initial encounter Fracture type: closed Qualified Code(s): S82.851A - Displaced trimalleolar fracture of right lower leg, initial encounter for closed fracture Plan to address problem: Patient had right ankle surgery with trimalleolar fracture fixation Postop patient doing well Patient using walker Needs pain management (2) Hypertension Current Visit: Yes Status: Chronic Qualifiers: Hypertension type: essential hypertension Qualified Code(s): I10 - Essential (primary) hypertension Plan to address problem: Continue antihypertensives (3) CHF (congestive heart failure) Current Visit: Yes Status: Chronic Qualifiers: Heart failure type: combined systolic and diastolic Plan to address problem: Mild Patient medically stable (4) Anemia Current Visit: Yes Status: Chronic Qualifiers: Anemia type: iron deficiency Plan to address problem: Iron supplements Disposition: TO HOME OR SELFCARE - Discharge Diagnoses (1) Trimalleolar fracture of right ankle Status: Acute Qualifiers: Encounter type: initial encounter Fracture type: closed Qualified Code(s): S82.851A - Displaced trimalleolar fracture of right lower leg, initial encounter for closed fracture (2) Hypertension Status: Chronic Qualifiers: Hypertension type: essential hypertension Qualified Code(s): I10 - Essential (primary) hypertension (3) CHF (congestive heart failure) Status: Chronic Qualifiers: Heart failure type: combined systolic and diastolic (4) Anemia Status: Chronic Qualifiers: Anemia type: iron deficiency (5) DVT prophylaxis Status: Acute Core Measure Documentation - Palliative Care Palliative Care/ Comfort Measures: Not Applicable - Core Measures Any of the following diagnoses?: none Exam - Constitutional Vitals: Temp Pulse Resp BP Pulse Ox 98.2 F 92 H 18 130/84 97 03/28/20 15:00 03/28/20 15:00 03/28/20 15:00 03/28/20 15:00 03/28/20 15:00 General appearance: Present: no acute distress, well-nourished - EENT Eyes: Present: PERRL ENT: hearing intact, clear oral mucosa - Neck Neck: Present: supple, normal ROM - Respiratory Respiratory effort: normal Respiratory: bilateral: CTA - Cardiovascular Heart rate: 78 Rhythm: regular Heart Sounds: Present: S1 & S2. Absent: rub, click - Extremities Extremities: pulses symmetrical, No edema Peripheral Pulses: within normal limits - Abdominal General gastrointestinal: Present: soft, non-tender, non-distended, normal bowel sounds Female genitourinary: Present: normal - Rectal Rectal Exam: deferred - Integumentary Integumentary: Present: clear, warm, dry - Musculoskeletal Musculoskeletal: gait normal, strength equal bilaterally - Psychiatric Psychiatric: appropriate mood/affect, intact judgment & insight - Neurologic Neurologic: CNII-XII intact, moves all extremities - Allied Health Allied health notes reviewed: nursing, case management Plan Weight Bearing Status: Weight Bear as Tolerated Diet: low salt Follow up with: DAVIS THOMPSON MD [Primary Care Provider] - 3-5 Days ANSELMO SONI MD [Staff Physician] - 3-5 Days Prescriptions: oxyCODONE /ACETAMINOPHEN [Percocet 5/325] 1 tab PO Q6HR PRN #14 tablet PRN Reason: Pain Ondansetron [Zofran Odt] 4 mg PO Q8HR PRN #14 tab.rapdis PRN Reason: Nausea And Vomiting
[2020-03-28] MEDS: oxyCODONE /ACETAMINOPHEN 5-325MG TAB PO PRN (20:04)
== END 2020-03-28 20:56 | disposition home or self-care (01) | DRG 493 ==
LOC: ED 01:38 → 3B-SURG 05:58
PROVIDERS: ADMIT Internal Medicine Geriatric Medicine; ATTEND Internal Medicine
PROC: 0QSG04Z Reposition Right Tibia with Internal Fixation Device, Open Approach (ICD-10-PCS; principal; 2020-03-26)
DX: S82.851A Displaced trimalleolar fracture of right lower leg, initial encounter for closed fracture (principal); Z68.41 Body mass index [BMI] 40.0-44.9, adult; I50.42 Chronic combined systolic (congestive) and diastolic (congestive) heart failure; S93.06XA Dislocation of unspecified ankle joint, initial encounter; Z88.0 Allergy status to penicillin; J44.9 Chronic obstructive pulmonary disease, unspecified; E66.9 Obesity, unspecified; E66.01 Morbid (severe) obesity due to excess calories; Z71.3 Dietary counseling and surveillance; Z82.49 Family history of ischemic heart disease and other diseases of the circulatory system; I11.0 Hypertensive heart disease with heart failure; D50.0 Iron deficiency anemia secondary to blood loss (chronic); W18.39XA Other fall on same level, initial encounter; Y93.89 Activity, other specified; Y92.89 Other specified places as the place of occurrence of the external cause; Y99.8 Other external cause status
CPT/HCPCS: 36415; 64450; 71045; 80048; 80053; 83036; 85025; 85610; 85730; 86850; 86900; 86901; 93005; 94760; G0378; C1713; J0330; J1100; J1170; J1885; J2250; J2270; J2370; J2405; J2704; J2710; J3010; J3370; J7030; J7040; J7120